=== PATIENT | male | born 1970 | race Asian ===

== ENCOUNTER 2017-05-05 03:22 | Emergency (ER) | payer OTHER ==
[~2017-05-05] VITALS: Ht 175.3 cm; Wt 83.9 kg
[2017-05-05 03:43] LABS: ABSOLUTE EOSINOPHILS 0.2 thou/uL (0.0-0.7); ABSOLUTE LYMPHOCYTES 2.5 thou/uL (0.8-5.3); ABSOLUTE MONOCYTES 0.6 thou/uL (0.0-1.2); ABSOLUTE NEUTROPHILS 5.1 thou/uL (1.6-8.1); BASOPHILS 0.3 %; EOSINOPHILS 2.6 %; HEMATOCRIT 47.2 % (42.0-52.0); HEMOGLOBIN 16.1 gm/dL (14.0-18.0); MCH 29.7 pg (26.0-34.0); MCV 87.3 fL (80.0-100.0); MONOCYTES 7.2 %; MPV 8.9 fl. (7.2-11.1); NUCLEATED RBCS 0 /100WBC; PLATELET COUNT* 248 thou/uL (150-400); POLYS 59.9 %; RBC 5.41 mil/uL (4.50-6.00); RDW-CV 14.1 % (10.5-14.5); WBC 8.5 thou/uL (4.0-11.0)
[2017-05-05 03:49] LABS: CREATININE 0.9 mg/dL (0.6-1.3); POTASSIUM 3.4 mmol/L (3.5-5.1)
[2017-05-05 03:53] LABS: ALBUMIN 4.5 g/dL (3.4-5.0); TOTAL BILIRUBIN 0.2 mg/dL (<0.1-1.0); TOTAL PROTEIN 8.1 g/dL (6.4-8.2)
[2017-05-05 04:09] LABS: URINE BILIRUBIN NEGATIVE (Negative); URINE BLOOD TRACE (Negative); URINE CLARITY CLEAR; URINE COLOR YELLOW; URINE GLUCOSE-RANDOM NEGATIVE (Negative); URINE KETONES NEGATIVE (Negative); URINE LEUKOCYTES-REFLEX NEGATIVE (Negative); URINE NITRITE-REFLEX NEGATIVE (Negative); URINE PROTEIN NEGATIVE (Negative); URINE SPECIFIC GRAVITY <= 1.005 (1.005-1.030); URINE UROBILINOGEN 0.2 E.U./dl (0.2-1.0)
[2017-05-05] MEDS ORDERED: CIPROFLOXACIN500 M1 PO (04:52)
[2017-05-05] MEDS ORDERED: FLOMAX0.4 MG PO (04:52)
[2017-05-05] MEDS ORDERED: PERCOCET 5-3251 EACH PO (04:52)
[2017-05-05 06:46] VITALS: BP 111/66
== END 2017-05-05 06:46 | disposition home or self-care (01) ==
LOC: M.ERS 03:22
PROVIDERS: Family Medicine
DX: N20.0 Calculus of kidney (principal)